=== PATIENT | female | born 1950 | race Caucasian/White ===

== ENCOUNTER 2024-05-24 17:20 | Emergency (ER) | payer MEDICARE, SELFPAY ==
[2024-05-24 17:23] VITALS: BP 188/82; PULSE 95; RESP 21; TEMP 36.5; TEMP 36.6; O2SAT 96
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
--- NOTE | 2024-05-24 17:40 | EKG12_ITS ---
Test Reason : DYSRHYTHMIA Blood Pressure : */* mmHG Vent. Rate : 95 BPM Atrial Rate : 95 BPM P-R Int : 190 ms QRS Dur : 174 ms QT Int : 420 ms P-R-T Axes : 51 75 -53 degrees QTcB Int : 527 ms Atrial-sensed ventricular-paced rhythm Abnormal ECG Confirmed by Philip Nielsen ([id number]), dictionary editor YUMIKO DOUGLASS ([id number]) on 05/25/2024 11:30:18 AM Referred By: Confirmed By: Philip Nielsen
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
[2024-05-24 18:00] VITALS: BP 170/68; PULSE 99; RESP 29; O2SAT 97
--- NOTE | 2024-05-24 18:08 | PCA ---
CALLED [facility] FOR A TRAUMA TRANSFER @ 174. THEY ACCEPTED HER. I CALLED PHYSICIANS FOR TRANSPORT @ 1744 AND THE EAT WAS 45 MINS-60 MINS.
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
[2024-05-24 18:18] LABS: Absolute Lymphocyte Count 3.09 X10^3/uL (0.83-4.51); Basophil# 0.07 X10^3/uL; Basophil% 0.6 % (0-1); Eosinophil# 0.04 X10^3/uL; Eosinophils% 0.3 % (0-5); Hemoglobin 13.8 g/dL (12.0-15.0); Lymphocyte # 3.09 X10^3/ul (0.83-4.51); Lymphocyte % 25.5 % (19-41); Mean Corp Hgb Conc 34.5 g/dL (32-36); Mean Corpuscular Hgb 33.6 pg (27.0-32.0); Mean Corpuscular Volume 97.3 fL (81-99); Mean Platelet Vol. 8.9 fl (6.2-12.0); Monocyte# 0.74 X10^3/uL; Monocyte% 6.1 % (0-10); NRBC Flagged by Analyzer 0 % (0-5); Neutrophil # 8.01 X10^3/uL (2.7-7.7); Neutrophil % 65.9 % (47-70); Platelet Count 261 K/mm3 (150-450); RBC Distribution Width CV 12.9 % (11.6-14.6); RBC Distribution Width SD 45.1 fl (35.1-43.9); Red Blood Count 4.11 M/mm3 (4.2-5.4); White Blood Count 12.1 K/mm3 (4.4-11.0)
[2024-05-24 18:37] LABS: Lipase 51 U/L (13-75)
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
[2024-05-24 18:39] LABS: ALB/GLOB Ratio 1.8 RATIO (0.9-2.4); AST(SGOT) 29 U/L (<=31); Alanine Aminotransfer ALT/SGPT 29 U/L (<=34); Albumin, Serum 4.2 g/dL (3.4-4.8); Alkaline Phosphatase 80 U/L (35-104); Anion Gap 13 (5-15); BUN 27 mg/dL (4-19); Calcium,Total 9.4 mg/dL (7.6-11.0); Carbon Dioxide 21.3 mmol/L (21.0-32.0); Chloride 106 mmol/L (98-108); Creatinine, Serum 1.19 mg/dL (0.70-1.20); EST Glomerular Filtration Rate 49 (>60); Globulin 2.3 g/dL (2.2-4.2); Glucose 145 mg/dL (70-99); Potassium 3.9 mmol/L (3.3-5.1); Protein, Total 6.5 g/dL (5.9-8.4); Sodium Level 140 mmol/L (133-145); Total Bilirubin 0.52 mg/dL (0.00-1.30)
[2024-05-24] MEDS: Ondansetron 4 MG/2 ML Vial IV (18:48)
[2024-05-24] MEDS: fentaNYL 100 MCG/2 ML Ampul 50 MCG IV ×2 (18:48→19:05)
[2024-05-24] MEDS: Diphth,Pertuss(Acell),Tet Vac 0.5 ML Vial IM (18:49)
[2024-05-24] MEDS: Piperacil/Tazobactam 4.5 GM in 0.9% Normal Saline (100mL MB+) 100 ML IV (18:49)
[2024-05-24 18:50] LABS: Troponin T High Sensitivity 17 ng/L (<=14)
[2024-05-24 18:51] LABS: Prothrombin Time (Protime)PT. 13.6 SECONDS (11.7-14.9)
[2024-05-24 18:52] LABS: Partial Thromboplast Time 22.8 Seconds (24.1-36.2)
--- NOTE | 2024-05-24 19:28 | ED.RN ---
report called to Ken at [facility]
== END 2024-05-24 19:31 | disposition short-term general hospital (02) ==
PROVIDERS: Emergency Provider Emergency Medicine; Visit Provider Emergency Medicine
DX: S92.001B Unspecified fracture of right calcaneus, initial encounter for open fracture (principal); I48.91 Unspecified atrial fibrillation; E11.9 Type 2 diabetes mellitus without complications; S62.102B Fracture of unspecified carpal bone, left wrist, initial encounter for open fracture; R07.89 Other chest pain; V43.52XA Car driver injured in collision with other type car in traffic accident, initial encounter; I10 Essential (primary) hypertension; Z95.0 Presence of cardiac pacemaker; Z79.01 Long term (current) use of anticoagulants
CPT/HCPCS: 51702; 70450; 71260; 72125; 73110; 73610; 74177; 80053; 83690; 84484; 85025; 85610; 85730; 90715; 93005; 96365; 96375; 96376; 99285; Q9967; A4216; J2405